=== PATIENT | female | born 1980 | race Two or more races ===

== ENCOUNTER → 2019-02-20 | Outpatient (CLI) | payer OTHER | END | disposition home or self-care (01) | LOC: RAD 12:31 → EDBD 12:31 | DX: M79.672 Pain in left foot (principal) ==

== ENCOUNTER → 2025-01-19 | Emergency (ER) | payer OTHER ==
[~2025-01-19] VITALS: Ht 160 cm; Wt 55.8 kg
[~2025-01-19] MED LIST: ADDERALL 10 MG10 MG PO
== END | disposition left against medical advice (07) ==
LOC: ER 12:54
DX: Z53.21 Procedure and treatment not carried out due to patient leaving prior to being seen by health care provider (principal)